=== PATIENT | male | born 1965 | race Native Hawaiian/Other Pacific Islander ===

== ENCOUNTER 2021-02-17 06:22 | Day surgery (SDC) | payer OTHER ==
[~2021-02-17] VITALS: Ht 15.2 cm; Wt 81.6 kg
[2021-02-17] MEDS ORDERED: LIDOCAINE 2% 100 MG/5 ML UJET TP ONE (08:38)
[2021-02-17] MEDS ORDERED: fentaNYL citrate 0.05 MG/ML VIAL ONE (08:38)
[2021-02-17] MEDS ORDERED: fentaNYL citrate 0.05 MG/ML VIAL IVP ONE (09:10)
== END 2021-02-17 09:45 | disposition home or self-care (01) ==
LOC: MDS 06:22 → MMU 06:27 → MDS 09:45
PROVIDERS: ATTEND Internal Medicine Gastroenterology
DX: R19.5 Other fecal abnormalities (principal); K57.30 Diverticulosis of large intestine without perforation or abscess without bleeding; D50.0 Iron deficiency anemia secondary to blood loss (chronic); Z79.899 Other long term (current) drug therapy
CPT/HCPCS: 45378; J3010